=== PATIENT | male | born 1980 ===

== ENCOUNTER 2017-11-10 10:58 | Emergency (ER) | payer OTHER ==
[~2017-11-10] VITALS: Ht 182.9 cm; Wt 104.3 kg
[~2017-11-10 10:58] MED LIST: GILTUSS TR TAB1 EACH PO; LOTRISONE CREAM45 GM TP; TESSALON PERLE100 M1 PO; TUSSI PRES-B L120 M1 PO; ZITHROMAX200 MG PO; ZYRTEC10 MG PO
== END 2017-11-10 13:24 | disposition home or self-care (01) ==
LOC: ER 10:58
DX: S80.02XA Contusion of left knee, initial encounter (principal); X50.3XXA Overexertion from repetitive movements, initial encounter; Y93.67 Activity, basketball; Y92.89 Other specified places as the place of occurrence of the external cause; Y99.8 Other external cause status

== ENCOUNTER 2023-03-11 21:56 | Emergency (ER) | payer OTHER ==
[~2023-03-11] VITALS: Ht 182.9 cm; Wt 102.1 kg
[2023-03-12 01:07] LABS: HEMATOCRIT 48.6 % (39.0-48.0); MEAN CORPUSCULAR HGB CONC 32.9 g/dl (32.0-36.0); PLATELET COUNT 333 K/uL (150-450); RED BLOOD COUNT 5.93 M/uL (4.00-6.00)
[2023-03-12 01:26] LABS: CREATININE SERUM 2.04 mg/dL (0.70-1.30); GFR 35.99; POTASSIUM 4.26 mEq/L (3.5-5.1)
[2023-03-12 06:48] LABS: URINE APPEARANCE Cloudy; URINE BILIRRUBIN Negative (NEGATIVE); URINE BLOOD Negative; URINE COLOR Dark Yellow; URINE GLUCOSE Negative (NEGATIVE); URINE LEUKOCYTE Negative; URINE NITRATE Negative; URINE PROTEIN 30 (NEGATIVE)
[2023-03-12 06:51] LABS: URINE BACTERIA 66.7 uL (0.0-1933); URINE EPITHELIAL CELLS 31.8 uL (0.0-38.8); URINE RBC 14.5 uL (0.0-20.8)
[2023-03-12 07:15] LABS: URINE CRYSTALS NEGATIVE /HPF
[2023-03-12 08:24] LABS: HEMATOCRIT 44.4 % (39.0-48.0); HEMOGLOBIN 14.5 g/dL (13-16.00); MEAN CELL VOLUME 83.4 fL (80.0-100.00); MEAN CORPUSCULAR HEMOGLOBIN 27.3 pg (27.00-32.0); MEAN CORPUSCULAR HGB CONC 32.7 g/dl (32.0-36.0); PLATELET COUNT 271 K/uL (150-450); RED BLOOD COUNT 5.33 M/uL (4.00-6.00); RED CELL DISTRIBUTION WIDTH 14.9 % (11.5-14.5)
[2023-03-12 09:17] LABS: CALCIUM 8.9 mg/dL (8.5-10.1); CREATININE SERUM 1.51 mg/dL (0.70-1.30); GFR 50.93; POTASSIUM 4.06 mEq/L (3.5-5.1)
== END 2023-03-12 14:12 | disposition home or self-care (01) ==
LOC: ER 21:56
PROVIDERS: General Practice
DX: E86.0 Dehydration (principal); R19.7 Diarrhea, unspecified; T61.01XA Ciguatera fish poisoning, accidental (unintentional), initial encounter